=== PATIENT | female | born 1990 | race Hispanic/Latino ===

== ENCOUNTER 2018-07-19 12:19 | Emergency (ER) | payer SELFPAY ==
[2018-07-19 12:54] LABS: Bilirubin Negative (Negative); Blood, Urine Negative (Negative); Clarity CLEAR (Clear); Glucose, Urine (Dipstick) Negative (Negative); Leukocyte Negative (Negative); Nitrite Negative (Negative); Protein, Urine (Dipstick) Negative (Neg-Trace); Urobilinogen 0.2 mg/dL (0.2-1.0); pH, Urine 6.5 (5.0-9.0)
[2018-07-19 13:01] LABS: Pregnancy Test - Urine (BHCG) Negative (Negative); Pregu Control Background? CLEAR/WHITE (CLR/WHITE); Pregu Control Bar Appear? YES (CONTROL BAR); Specific Gravity 1.003 (1.002-1.036); Specific Gravity, Urine 1.003 (1.002-1.036)
[2018-07-19 13:04] LABS: BHCG - Serum Negative (NEGATIVE); Pregs Control Background? CLEAR/WHITE (CLR/WHITE); Pregs Control Bar Appear? YES (CONTROL BAR)
== END 2018-07-19 13:58 | disposition home or self-care (01) ==
LOC: ERS 12:19
DX: R10.2 Pelvic and perineal pain (principal); R11.2 Nausea with vomiting, unspecified; F41.9 Anxiety disorder, unspecified; F32.9 Major depressive disorder, single episode, unspecified; F17.210 Nicotine dependence, cigarettes, uncomplicated; Z79.899 Other long term (current) drug therapy
CPT/HCPCS: 81003; 81025; 84702; 84703; 99284

== ENCOUNTER 2018-12-23 15:43 | Emergency (ER) | payer BC, SELFPAY ==
[2018-12-23] MEDS ORDERED: Metoclopramide HCl 10 MG/2 ML VIAL ONE (16:12)
[2018-12-23] MEDS ORDERED: Ketorolac Tromethamine 30 MG/ML VIAL ONE (16:12)
[2018-12-23] MEDS ORDERED: Dexamethasone 4 mg/ml Vial ONE (16:12)
[2018-12-23 16:26] LABS: Anion Gap 12 mmol/L (10-20); BUN (Urea Nitrogen) 10 mg/dL (7.0-18.7); Calc. Creatinine Clearance 0 mL/min (70-130); Calcium 9.2 mg/dL (7.8-10.44); Carbon Dioxide 29 mmol/L (22-29); Chloride 103 mmol/L (98-107); Estimated GFR-MDRD 76; Glucose 102 mg/dL (70-105); Sodium 140 mmol/L (136-145)
[2018-12-23] MEDS ORDERED: Proparacaine 0.5% Opth 15 ML BOT ONE (17:25)
== END 2018-12-23 17:45 | disposition home or self-care (01) ==
LOC: ERS 15:43
DX: H40.051 Ocular hypertension, right eye (principal); F41.9 Anxiety disorder, unspecified; F32.9 Major depressive disorder, single episode, unspecified; F17.210 Nicotine dependence, cigarettes, uncomplicated; Z87.442 Personal history of urinary calculi; Z79.899 Other long term (current) drug therapy
CPT/HCPCS: 80048; 96365; 96375; J1100; J1885; J2765

== ENCOUNTER 2019-01-11 20:16 | Observation (INO) | payer BC ==
[2019-01-11 21:50] LABS: #Basophils 0.1 thou/uL (0.0-0.2); #Eosinphils 0.5 thou/uL (0.0-0.7); #Lymphocytes 2.7 thou/uL (1.20-3.40); #Monocytes 0.7 thou/uL (0.11-0.59); #Neutrophils 9.1 thou/uL (1.40-6.50); %Basophils 0.5 % (0.0-1.0); %Eosinophils 3.5 % (0.0-10.0); %Lymphocytes 20.8 % (21.0-51.0); %Monocytes 5.7 % (0.0-10.0); %Neutrophils 69.5 % (42.0-75.0); Hemoglobin 11.4 g/dL (12.0-16.0); Mean Corpuscular Hemoglobin 26.8 pg (27.0-31.0); Mean Corpuscular Volume 83.9 fL (78.0-98.0); Mean Platelet Volume 8.1 fL (7.4-10.4); Platelet Count 283 thou/uL (130-400); RBC Distribution Width 14.5 % (11.5-14.5); Red Blood Cell (RBC) Count 4.25 mill/uL (4.20-5.40); White Blood Cell (WBC) Count 13.1 thou/uL (4.8-10.8)
[2019-01-11 22:01] LABS: Bilirubin Negative (Negative); Blood, Urine Large (Negative); Clarity CLOUDY (Clear); Glucose, Urine (Dipstick) Negative (Negative); Leukocyte Small (Negative); Nitrite Negative (Negative); Protein, Urine (Dipstick) 30 mg/dL (Neg-Trace); Specific Gravity, Urine 1.013 (1.002-1.036); Urobilinogen 0.2 mg/dL (0.2-1.0)
[2019-01-11 22:06] LABS: Bacteria/HPF None Seen HPF (None Seen); Hyaline Casts/LPF 0-3 HYALINE CAST LPF (0-3 Hyaline); Pathc Cast-AUWi Flag 0.86 (0-2.49); Squamous Epithelial 0-3 HPF (0-3)
[2019-01-11 22:08] LABS: BHCG - Serum Negative (NEGATIVE); Pregs Control Background? CLEAR/WHITE (CLR/WHITE); Pregs Control Bar Appear? YES (CONTROL BAR)
[2019-01-11 22:09] LABS: Yeast-AUWi Flag 38.2 (0-25.0)
[2019-01-11 22:16] LABS: ALT (SGPT) 15 U/L (8-55); AST (SGOT) 16 U/L (5-34); Albumin 3.7 g/dL (3.5-5.0); Alkaline Phosphatase 64 U/L (40-150); Anion Gap 11 mmol/L (10-20); BUN (Urea Nitrogen) 13 mg/dL (7.0-18.7); Bilirubin, Total Less than 0.2 mg/dL (0.2-1.2); Calc. Creatinine Clearance 0 mL/min (70-130); Calcium 8.4 mg/dL (7.8-10.44); Carbon Dioxide 25 mmol/L (22-29); Chloride 106 mmol/L (98-107); Estimated GFR-MDRD Greater than 90; Glucose 92 mg/dL (70-105); Potassium 3.8 mmol/L (3.5-5.1); Protein, Total 6.7 g/dL (6.0-8.3); Sodium 138 mmol/L (136-145)
[2019-01-11 22:18] LABS: RBC/HPF GREATER THAN 50-TNTC HPF (0-3)
[2019-01-11] MEDS ORDERED: Meclizine HCl 25 MG TAB ONE (23:11)
--- NOTE | 2019-01-11 23:21 | CT ---
CT Brain WO Con: 01/11/2019 11:09 PM CLINICAL HISTORY: Syncope. COMPARISON: None. FINDINGS: Hemorrhage: None. Ventricular system: Normal in size and morphology for the patient's age. Cerebral parenchyma: Normal Midline shift: None. Mass: No mass effect. Calvarium: Normal. Visualized Paranasal sinuses: Clear. IMPRESSION: No acute intracranial abnormalities.
[2019-01-12] MEDS ORDERED: Lorazepam 1 MG TAB ONE (00:21)
[2019-01-12] MEDS ORDERED: diphenhydrAMINE 25 MG CAP ONE (00:24)
[2019-01-12] MEDS ORDERED: Citalopram 10 MG TAB PO SCH ×2 (00:30→22:00)
[2019-01-12 02:22] LABS: Troponin I Less than 0.010 ng/mL (< 0.028)
[2019-01-12 04:02] LABS: Troponin I Less than 0.010 ng/mL (< 0.028)
[2019-01-12] MEDS ORDERED: Acetaminophen 325 MG TAB PO PRN (11:57)
[2019-01-12 16:31] VITALS: BMI 38.0
--- NOTE | 2019-01-12 16:32 | HP ---
PRIMARY CARE PHYSICIAN: Margo Martino MD CHIEF COMPLAINT: "I passed out." HISTORY OF PRESENT ILLNESS: Ms. Ferraro is a pleasant 28-year-old female, who has a history of mitral valve prolapse. She says that yesterday she was in the bathroom and had just gone to the bathroom to urinate and remembers feeling a bit dizzy. She also says that she is on her cycle and was bleeding very heavily. The next thing she knows and said she was on the ground and her was trying to help her out. Her is at the bedside and says that he was in the other room and heard a loud noise like something hit the door and he says that she was a bit disoriented and was trying to wake her up and she says that she was confused when she got up and even after she was brought to the emergency room. She remained confused for some time. No mention of any seizure-like motions or any shaking or jerking. She also says that about 2 weeks ago, she had a severe migraine where she had a bad headache and lost vision in her right eye. The vision lasted for about 4 days and then has since improved and she is back to normal. She does have history of migraines with vision loss in the past. When asked if anything like this has happened before, she said about 7 years ago she passed out, but she equates that to seeing her daughter fall and hit her head and had a lot of bleeding. She says that her mother and her sister have something similar happened where they have very heavy cycles and then tend to have passing-out episodes during their cycles and she says both her sister and her mother have had to have hysterectomies and after they had the hysterectomy, it has gotten better or has actually stopped. REVIEW OF SYSTEMS: All systems were reviewed and are negative except for that mentioned in the history of present illness. PAST MEDICAL HISTORY: Significant for mitral valve prolapse, anxiety, depression, kidney stones, and history of previous migraines. PAST SURGICAL HISTORY: She has had a cholecystectomy, x2 as well as bilateral tubal ligation. ALLERGIES: TO PENICILLIN, SULFA, AND MACROBID. FAMILY HISTORY: Significant for coronary artery disease in her father and daughter and father also had congestive heart failure. Mother and sister have had syncopal episodes related to menstrual cycles. SOCIAL HISTORY: She smokes about 5 cigarettes a day. Denies any alcohol use and she is . MEDICATIONS: Include; 1. Citalopram. 2. Lorazepam. 3. Reglan. 4. Benadryl. 5. Zantac. 6. BuSpar p.r.n. PHYSICAL EXAMINATION: GENERAL: She is alert and oriented. She appears to be in no acute distress. VITAL SIGNS: Blood pressure was 99/56, currently it is about 108/59; heart rate 64; respiratory rate of 12; temperature, she is afebrile. HEENT: Her pupils are equal, round, and reactive to light. Extraocular muscles are intact. Her sclerae are anicteric. Throat; there is no erythema. No exudates. NECK: No adenopathy. No bruits. LUNGS: Clear to auscultation. There are no wheezing, rales, or rhonchi. CARDIOVASCULAR: She has a normal S1 and S2. There is no S3 or S4. No murmurs, clicks, or rubs. ABDOMEN: Obese. It is soft, nontender, and nondistended. Positive for bowel sounds. There is no rebound or guarding. EXTREMITIES: There is no clubbing or cyanosis. No edema. No calf tenderness. No joint effusions. NEUROLOGIC: Cranial nerves II through XII are grossly intact. Her muscle strength is 5/5 in both upper and lower extremities. SKIN AND INTEGUMENT: There are no skin changes. No rash. LABORATORY RESULTS: White blood cell count is 13.1, hemoglobin 11.4, hematocrit is 35.7, and platelet count is 283. Sodium 138, potassium 3.8, chloride is 106, CO2 is 25, BUN of 13, creatinine 0.74, and glucose is 92. Troponin is less than 0.010. Urine test is negative. She had an EKG that was sinus rhythm and had some shortened OK interval and CT scan of the brain was negative. ASSESSMENT AND PLAN: This is a pleasant 28-year-old female, who presents after a syncopal episode. This possibly could be related to her menstrual cycle as in her other family members. However, she has a slightly different or abnormal EKG and for this reason, we will go ahead and keep her in observation until she can be seen by the formal waiter/waitress and once cleared by Cardiology, she can be discharged home with close outpatient followup. She possibly may need an outpatient neurology evaluation as well. Job ID: [id number]
[2019-01-12] MEDS ORDERED: Lorazepam 1 MG TAB PO SCH (21:00)
--- NOTE | 2019-01-12 21:37 | CON ---
DATE OF CONSULTATION: 01/12/2019 REASON FOR CONSULTATION: Syncopal episode. HISTORY OF PRESENT ILLNESS: Ms. Ferraro is a very pleasant 28-year-old woman who had a syncopal episode yesterday. The patient was in the kitchen cooking. She went to the bathroom to urinate, she did not feel quite right and felt lightheaded. She urinated then got up from the toilet, but did not feel well and sat on the floor. She felt unwell, felt lightheaded. She got up to try to walk and lost consciousness. The patient states she has had "fainting" episodes on multiple occasions in her early 20s, but none recently. The patient has in the middle of her periods she said she has relatively heavy periods. PAST MEDICAL HISTORY: She has a previous syncopal episode. FAMILY HISTORY: She has four children. REVIEW OF SYSTEMS: CONSTITUTIONAL: No significant weight gain or loss. She is overweight. VISION: No changes. HEARING: No changes. PULMONARY: No cough or wheezing. GASTROINTESTINAL: No nausea, vomiting, diarrhea. SKIN: No rashes. NEUROLOGIC: No unilateral weakness or numbness. PSYCHIATRIC: No unusual depression or anxiety. HEMATOLOGIC: No unusual bruising. GENITOURINARY: No burning with urination. The patient does have intermittent palpitations lasting for a few seconds at a time like "butterflies" for a few seconds. She did not have these symptoms with this episode. PHYSICAL EXAMINATION: GENERAL: On examination, this is a pleasant 28-year-old woman. She is very overweight with BMI of 38, 5 feet 8 inches tall, 250 pounds. HEENT: Eyes, sclerae are nonicteric. Mouth, mucous membranes are moist. NECK: Supple, no lymphadenopathy. LUNGS: Clear, no wheezing, rales, or rhonchi. CARDIAC: Normal S1, normal S2. There is no murmur, rub, or gallop. ABDOMEN: Obese, nontender. No hepatosplenomegaly. EXTREMITIES: Warm and dry. No clubbing, cyanosis, or edema. Good peripheral pulses. SKIN: Warm and dry. LABORATORY DATA: Cardiac enzymes are all negative. Hemoglobin is 11.4, hematocrit 35.7. EKG, normal sinus rhythm, looks like a normal EKG. The computer read it is a sharp MS, but the MS interval is 120 seconds by my measurement, which is within normal limits. ASSESSMENT: Syncopal episode, probably orthostatic hypotension, vasovagal. PLAN: 1. Echocardiogram needs to be done as an outpatient. 2. Outpatient monitoring to be done for the palpitations, but these were unassociated with her syncopal episode. 3. I explained to the patient she should sit down or lay down quickly if she feels lightheaded. The patient wishes to be released home. She has one of her children on hospice unfortunately. Also we would recommend iron tests, she may be iron deficient, may need to be on iron. Job ID: [id number]
[2019-01-13 08:06] LABS: #Basophils 0.1 thou/uL (0.0-0.2); #Eosinphils 0.4 thou/uL (0.0-0.7); #Lymphocytes 2.4 thou/uL (1.20-3.40); #Monocytes 0.5 thou/uL (0.11-0.59); %Basophils 0.8 % (0.0-1.0); %Eosinophils 5.6 % (0.0-10.0); %Lymphocytes 38.7 % (21.0-51.0); %Monocytes 7.2 % (0.0-10.0); %Neutrophils 47.8 % (42.0-75.0); Hemoglobin 10.9 g/dL (12.0-16.0); Mean Corpuscular HGB CONC 31.7 g/dL (32.0-36.0); Mean Corpuscular Hemoglobin 26.5 pg (27.0-31.0); Mean Corpuscular Volume 83.7 fL (78.0-98.0); Mean Platelet Volume 8.2 fL (7.4-10.4); Platelet Count 218 thou/uL (130-400); RBC Distribution Width 14.5 % (11.5-14.5); Red Blood Cell (RBC) Count 4.09 mill/uL (4.20-5.40); White Blood Cell (WBC) Count 6.3 thou/uL (4.8-10.8)
[2019-01-13 08:18] LABS: BUN (Urea Nitrogen) 9 mg/dL (7.0-18.7); Calc. Creatinine Clearance 189 mL/min (70-130); Calcium 8.4 mg/dL (7.8-10.44); Carbon Dioxide 25 mmol/L (22-29); Chloride 109 mmol/L (98-107); Estimated GFR-MDRD 88; Glucose 89 mg/dL (70-105); Potassium 4.2 mmol/L (3.5-5.1); Sodium 140 mmol/L (136-145)
[2019-01-13] MEDS ORDERED: Citalopram 10 MG TAB PO SCH ×2 (09:00→21:00)
[2019-01-13 09:55] LABS: Anion Gap 10 mmol/L (10-20)
--- NOTE | 2019-01-13 11:26 | PDOC.PN ---
- Subjective Encounter Start Date: 01/13/19 Encounter Start Time: 11:24 Ms. Ferraro was seen today in follow-up she does not have any complaints. - Objective Resuscitation Status - Order Detail: 01/12/19 11:48 Resuscitation Status Routine Resuscitation Status: FULL: Full Resuscitation MAR Reviewed: Yes Vital Signs & Weight: Vital Signs (12 hours) Temp Pulse Resp BP BP Pulse Ox 01/13/19 07:34 98 F 63 16 106/51 L 95 01/13/19 05:10 98.3 F 61 16 109/60 96 Weight Weight 246 lb 14.4 oz I&O: 01/12/19 01/13/19 01/14/19 06:59 06:59 06:59 Intake Total 520 Balance 520 Result Diagrams: 01/13/19 07:51 01/13/19 07:51 Phys Exam - Physical Examination HEENT: PERRLA Respiratory: no wheezing, no rales, no rhonchi, clear to auscultation bilateral Cardiovascular: RRR, no significant murmur, no rub Gastrointestinal: soft, non-tender, no distention, positive bowel sounds Musculoskeletal: no edema Dx/Plan (1) Syncope Code(s): R55 - SYNCOPE AND COLLAPSE Status: Acute (2) Menorrhagia Code(s): N92.0 - EXCESSIVE AND FREQUENT MENSTRUATION WITH REGULAR CYCLE Status : Acute (3) Abnormal EKG Code(s): R94.31 - ABNORMAL ELECTROCARDIOGRAM [ECG] [EKG] Status: Acute - Plan * Syncope- ? etiology * She is stable for discharge home, and Dr. Durant recommends Outpatient Echo, and Holter Monitor.
[2019-01-13 12:06] VITALS: BP 118/72; TEMP 97.9
--- NOTE | 2019-01-14 05:09 | DIS ---
DATE OF ADMISSION: 01/12/2019 DATE OF DISCHARGE: 01/13/2019 DISCHARGE DISPOSITION: Home. PRIMARY DISCHARGE DIAGNOSES: 1. Syncope of unknown etiology. 2. Heavy menses. 3. Depression. 4. Anxiety. DISCHARGE MEDICATIONS: 1. Zantac 150 mg daily. 2. Lorazepam 1 mg at bedtime. 3. Benadryl 25 mg q.6. 4. Citalopram 10 mg daily. CODE STATUS: Full code. ALLERGIES: FENTANYL, FLUTICASONE, LATEX, NATURAL RUBBER, MORPHINE, COMPAZINE, PENICILLIN, AND NITROFURANTOIN. HOSPITAL COURSE: Ms. Ferraro is a pleasant 28-year-old female who was brought to the hospital by family after she suffered a syncopal episode. The full details of which are outlined in the history and physical. There were some changes of a short KS interval on her EKG and for this reason, she was placed in observation until she could be evaluated by Cardiology. It is recommended that she have an outpatient echo as well as make some changes related to orthostasis such as staying hydrated and being sure to stand and not to jump up quickly in changing positions. Also, Dr. Durant is recommending a Holter or event monitor as well. The patient herself notes that her mother and sisters had similar episodes where they would have syncopal episodes following heavy menses and this may in fact necktie turner to be the cause of her syncope. Job ID: [id number]
--- NOTE | 2019-01-15 15:36 | EKG ---
Test Reason : Blood Pressure : / mmHG Vent. Rate : 065 BPM Atrial Rate : 065 BPM P-R Int : 110 ms QRS Dur : 088 ms QT Int : 408 ms P-R-T Axes : 025 054 019 degrees QTc Int : 424 ms Poor data quality, interpretation may be adversely affected Sinus rhythm with sinus arrhythmia with short [place] Otherwise normal ECG Confirmed by DAYSI BURNETT ([id number]), editorial clerk FOZIA JACKSON ([id number]) on 01/15/2019 3:35:37 PM Referred By: Confirmed By:DAYSI BURNETT
== END 2019-01-13 12:19 | disposition home or self-care (01) ==
LOC: ERS 20:16 → ERHOLD 01-12 11:19 → 2SW 01-12 16:28
PROVIDERS: ADMIT Family Medicine; ATTEND Family Medicine
DX: R55 Syncope and collapse (principal); N92.0 Excessive and frequent menstruation with regular cycle; F32.9 Major depressive disorder, single episode, unspecified; F41.9 Anxiety disorder, unspecified; I34.1 Nonrheumatic mitral (valve) prolapse; G43.909 Migraine, unspecified, not intractable, without status migrainosus; F17.210 Nicotine dependence, cigarettes, uncomplicated; R94.31 Abnormal electrocardiogram [ECG] [EKG]; Z79.899 Other long term (current) drug therapy; Z88.0 Allergy status to penicillin; Z88.2 Allergy status to sulfonamides; Z88.5 Allergy status to narcotic agent; Z88.8 Allergy status to other drugs, medicaments and biological substances; Z88.1 Allergy status to other antibiotic agents; Z91.040 Latex allergy status
CPT/HCPCS: 36415; 70450; 80048; 80053; 81003; 81015; 82728; 83540; 84484; 84703; 85025; 93005; 96360; 96361; G0378; J8499; Q0163

== ENCOUNTER 2019-01-27 20:10 | Observation (INO) | payer BC ==
[~2019-01-27 20:10] MED LIST: ISOVUE-370 76%-LOCM 1 ML ONE
--- NOTE | 2019-01-27 20:40 | RAD ---
Portable frontal chest radiograph: 01/27/2019 COMPARISON: 04/21/2016 HISTORY: Right-sided abdominal pain FINDINGS: Lungs are clear. Heart and mediastinal contours appear within normal limits. IMPRESSION: No acute findings.
[2019-01-27 20:47] LABS: #Eosinphils 0.1 thou/uL (0.0-0.7); #Lymphocytes 1.4 thou/uL (1.20-3.40); #Monocytes 0.7 thou/uL (0.11-0.59); #Neutrophils 6.9 thou/uL (1.40-6.50); %Basophils 0.5 % (0.0-1.0); %Eosinophils 0.8 % (0.0-10.0); %Lymphocytes 14.8 % (21.0-51.0); %Monocytes 7.8 % (0.0-10.0); %Neutrophils 76.1 % (42.0-75.0); Hemoglobin 12.2 g/dL (12.0-16.0); Mean Corpuscular HGB CONC 32.4 g/dL (32.0-36.0); Mean Corpuscular Hemoglobin 26.5 pg (27.0-31.0); Mean Corpuscular Volume 81.6 fL (78.0-98.0); Mean Platelet Volume 8.2 fL (7.4-10.4); Platelet Count 220 thou/uL (130-400); RBC Distribution Width 14.3 % (11.5-14.5); White Blood Cell (WBC) Count 9.1 thou/uL (4.8-10.8)
[2019-01-27 20:59] LABS: Bilirubin Negative (Negative); Blood, Urine Small (Negative); Clarity CLEAR (Clear); Glucose, Urine (Dipstick) Negative (Negative); Leukocyte Negative (Negative); Nitrite Negative (Negative); Pregnancy Test - Urine (BHCG) Negative (Negative); Pregu Control Background? CLEAR/WHITE (CLR/WHITE); Pregu Control Bar Appear? YES (CONTROL BAR); Protein, Urine (Dipstick) Negative (Neg-Trace); Specific Gravity 1.008 (1.002-1.036); Specific Gravity, Urine 1.008 (1.002-1.036); Urobilinogen 0.2 mg/dL (0.2-1.0); pH, Urine 7.5 (5.0-9.0)
[2019-01-27 21:01] LABS: Bacteria/HPF Rare-Few HPF (None Seen); Hyaline Casts/LPF 0-3 HYALINE CAST LPF (0-3 Hyaline); Pathc Cast-AUWi Flag 0.13 (0-2.49); RBC/HPF 0-3 HPF (0-3); Squamous Epithelial 0-3 HPF (0-3)
[2019-01-27] MEDS ORDERED: Acetaminophen 500 MG TAB ONE (21:07)
[2019-01-27] MEDS ORDERED: Morphine 4 MG/ML VIAL ONE (21:07)
[2019-01-27 21:08] LABS: BHCG - Serum Negative (NEGATIVE); Pregs Control Background? CLEAR/WHITE (CLR/WHITE); Pregs Control Bar Appear? YES (CONTROL BAR)
[2019-01-27 21:10] LABS: ALT (SGPT) 26 U/L (8-55); AST (SGOT) 25 U/L (5-34); Albumin 4.2 g/dL (3.5-5.0); Alkaline Phosphatase 75 U/L (40-150); Anion Gap 14 mmol/L (10-20); BUN (Urea Nitrogen) 9 mg/dL (7.0-18.7); Bilirubin, Total 0.3 mg/dL (0.2-1.2); Calc. Creatinine Clearance 0 mL/min (70-130); Calcium 9.4 mg/dL (7.8-10.44); Carbon Dioxide 27 mmol/L (22-29); Chloride 99 mmol/L (98-107); Estimated GFR-MDRD 80; Globulin 3.4 g/dL (2.4-3.5); Glucose 87 mg/dL (70-105); Potassium 3.6 mmol/L (3.5-5.1); Protein, Total 7.6 g/dL (6.0-8.3); Sodium 136 mmol/L (136-145)
[2019-01-27] MEDS ORDERED: Ondansetron PF 4 MG/2 ML Vial ONE (21:15)
[2019-01-27 21:16] LABS: CK (CPK) 115 U/L (29-168); Lipase 26 U/L (8-78)
--- NOTE | 2019-01-27 22:10 | CT ---
CT of abdomen and pelvis: 01/27/2019 COMPARISON: 03/15/2011 HISTORY: Worsening abdominal pain for 2 days TECHNIQUE: Axial CT imaging at 5 mm intervals from lung bases through pubic symphysis with IV contras t. Coronal reformatted imaging obtained. FINDINGS: Imaged lung bases are unremarkable. Cholecystectomy clips are present. No free intraperiton eal air. Nonspecific splenomegaly noted, the spleen measuring 14.6 cm AP dimension and 15 cm craniocaudal dime nsion. The spleen is larger than on the prior examination at which time it measured 13 cm AP dimension and 1 2.4 cm craniocaudal dimension. The adrenal glands, the kidneys, and the pancreas appear grossly unremarkable. Nonspecific small volume free fluid is noted within the pelvic cul-de-sac. Limited assessment of the bowel without oral contrast media demonstrates no evidence for obstruction. The appendix cannot be discretely visualized but no inflammatory changes seen to suggest the presence of acute appendicitis. The vascular structures appear unremarkable and no lymphadenopathy is seen. No acute osseous abnormal ity. The patient appears to have a mobile cecum, located in the right upper quadrant on today's examinatio n. IMPRESSION: Nonspecific splenomegaly.
[2019-01-27] MEDS ORDERED: Ketorolac Tromethamine 30 MG/ML VIAL ONE (23:22)
[2019-01-27] MEDS ORDERED: Ondansetron PF 4 MG/2 ML Vial IVP PRN (23:58)
[2019-01-27] MEDS ORDERED: Senokot S 8.6-50 MG TAB PO PRN (23:58)
[2019-01-27] MEDS ORDERED: Ondansetron ODT 4 MG TAB PO PRN (23:58)
[2019-01-28] MEDS: Sodium Chloride 0.9% 1,000 ML IV SCH ×3 (01:23→16:58)
[2019-01-28 02:57] VITALS: BMI 36.5
--- NOTE | 2019-01-28 03:18 | HP ---
PRIMARY CARE PHYSICIAN: Margo Martino MD CHIEF COMPLAINT: Abdominal pain. HISTORY OF PRESENT ILLNESS: Ms. Ferraro is a 28-year-old female reported to the emergency room today after worsening abdominal pain, which started 2 days ago, associated with nausea, vomiting. Denies any diarrhea. Reports syncope when standing x1. The patient was recently evaluated for similar, was evaluated by Cardiology. Denies any chest pain, dyspnea, diarrhea, dysuria or frequency. Reports that she initially went to her primary care doctor today, had a bunch of lab work, was told that she had a UTI and was called in a prescription for antibiotics, but rather than picking up reported that she came to the emergency room, because she felt worse. Reports chills. Denies fever. Denies flank pain. Does report some suprapubic tenderness. Denies any vaginal discharge, any vaginal bleeding. While she was in the emergency room, she had a CT of her abdomen and pelvis, which showed no acute findings. Lab work was unremarkable. Lactic acid 1.1. Urinalysis shows a small amount of blood, white blood cells of 4-6, no bacteria that was sent off for culture. test was negative. White blood cell count is 9.1. Chest x-ray showed no acute findings. The patient's initial vital signs blood pressure 130/64, pulse was 129, respirations 24, temperature 99.4, pO2 sats 97% on room air. She was given Toradol, Zofran, Levaquin, morphine, Tylenol, 30 mL per kg of sodium chloride IV. Vital signs by the time she was discharged, improved. The patient was admitted to the Hospitalist Service for abdominal pain, SIRS. PAST MEDICAL HISTORY: Significant for mitral valve prolapse, anxiety, depression, kidney stones, history of migraines. SURGICAL HISTORY: section x2, cholecystectomy, tubal ligation. PSYCHIATRIC HISTORY: Anxiety and depression. SOCIAL HISTORY: Uses tobacco, smokes daily, has smoked for 5 years, 3-4 cigarettes per day. Drinks socially. Denies any drug use. FAMILY HISTORY: Heart disease. REVIEW OF SYSTEMS: CONSTITUTIONAL: Reports chills. Reports subjective fever. Reports abdominal pain, right-sided, but also suprapubic. Denies diarrhea. Does report nausea vomiting. Denies any dysuria or hematuria. NEUROLOGIC: Reports dizziness, syncope. Other systems reviewed and negative unless mentioned in the HPI. PHYSICAL EXAMINATION: VITAL SIGNS: Blood pressure 108/54, pulse is 73, respirations are 20, pain is down to a 5, five pO2 sats are 100% on room air, temperature is 98.8. GENERAL: The patient appears nontoxic, is alert and oriented to person, place, and time, in no acute distress. HEENT: Head is atraumatic and normocephalic. Eyes, pupils are equally round and reactive to light. Eyelids are normal to inspection. ENT: Mouth exam is normal. Mucous membranes are moist. NECK: Normal range of motion. Trachea is midline. RESPIRATORY: Chest movement is symmetrical. Chest expansion is equal. CARDIOVASCULAR: Heart rate is regular rate and rhythm. Heart sounds are normal. ABDOMEN: Mild tenderness to the right upper and lower quadrant and suprapubic region. Bowel sounds are normal. BACK: Normal range of motion. No CVA tenderness. EXTREMITIES: Upper extremity, normal inspection, normal range of motion. Radial pulses equal bilaterally lower extremity. Lower extremity, normal inspection, normal range of motion. Pedal pulses equal bilaterally. NEUROLOGIC: The patient is oriented to person, place, and time. Speech is normal. No focal motor or sensory deficits. SKIN: Warm, dry and normal in color. PERTINENT LABORATORY DATA: TSH is 1.13. Lipase is 26. CK is 115. Sodium is 136, potassium is 3.6, chloride is 99, carbon dioxide is 27, gap is 14, BUN is 9, creatinine is 0.84, GFR is 80, glucose is 87. Liver enzymes are unremarkable. Serum is negative. Lactic acid is 1.1. UA is positive for blood and white blood cells, no bacteria. White blood cell count is 9.1, hemoglobin is 12.2, hematocrit is 37.5, and platelet count is 220. IMAGING: EKG initial one in the ER shows sinus tach at 133. Nonspecific T-wave, ST abnormality, axis is normal. ASSESSMENT AND PLAN: 1. Abdominal pain with initial tachycardia, improved with fluids and medication. 2. The patient is no longer tachycardic. Vital signs have normalized. Lab work was unremarkable. CT scan of the abdomen was also unremarkable. The patient was treated with Levaquin for a possible urinary tract infection. We will continue IV hydration. We will repeat lab work in the morning. If feeling better, the patient may be able to go home on continued p.o. antibiotics as deemed appropriate by day staff. 3. History of syncope. The patient was evaluated by Dr. Durant several weeks ago. The patient is to follow up as an outpatient for an echocardiogram and possible monitor. The patient denies follow up yet. 4. Gastrointestinal and deep venous thrombosis prophylaxis will be started. 5. Hospital course will be dependent on clinical findings. Job ID: [id number]
[2019-01-28] MEDS: Acetaminophen 325 MG TAB PO PRN ×3 (04:43→14:36)
[2019-01-28 05:04] LABS: #Lymphocytes 1.2 thou/uL (1.20-3.40); #Monocytes 0.8 thou/uL (0.11-0.59); #Neutrophils 3.6 thou/uL (1.40-6.50); %Basophils 0.2 % (0.0-1.0); %Eosinophils 0.7 % (0.0-10.0); %Lymphocytes 20.5 % (21.0-51.0); %Monocytes 14.3 % (0.0-10.0); %Neutrophils 64.3 % (42.0-75.0); Hemoglobin 10.4 g/dL (12.0-16.0); Mean Corpuscular HGB CONC 31.6 g/dL (32.0-36.0); Mean Corpuscular Hemoglobin 26.3 pg (27.0-31.0); Mean Corpuscular Volume 83.2 fL (78.0-98.0); Mean Platelet Volume 8.5 fL (7.4-10.4); Platelet Count 162 thou/uL (130-400); RBC Distribution Width 14.3 % (11.5-14.5); Red Blood Cell (RBC) Count 3.94 mill/uL (4.20-5.40); White Blood Cell (WBC) Count 5.7 thou/uL (4.8-10.8)
[2019-01-28 05:35] LABS: ALT (SGPT) 25 U/L (8-55); AST (SGOT) 20 U/L (5-34); Albumin 3.3 g/dL (3.5-5.0); Alkaline Phosphatase 60 U/L (40-150); Anion Gap 9 mmol/L (10-20); BUN (Urea Nitrogen) 7 mg/dL (7.0-18.7); Bilirubin, Total Less than 0.2 mg/dL (0.2-1.2); Calc. Creatinine Clearance 189 mL/min (70-130); Calcium 7.8 mg/dL (7.8-10.44); Carbon Dioxide 25 mmol/L (22-29); Chloride 107 mmol/L (98-107); Estimated GFR-MDRD Greater than 90; Globulin 2.7 g/dL (2.4-3.5); Glucose 95 mg/dL (70-105); Potassium 3.1 mmol/L (3.5-5.1); Sodium 138 mmol/L (136-145)
[2019-01-28] MEDS: Ketorolac Tromethamine 30 MG/ML VIAL IVP PRN ×2 (07:59→14:36)
[2019-01-28] MEDS ORDERED: Famotidine 20 MG TAB PO SCH (09:00)
[2019-01-28] MEDS ORDERED: Enoxaparin Sodium 40 MG/0.4 ML SYRINGE SC SCH (09:00)
[2019-01-28 11:16] VITALS: TEMP 98.1
[2019-01-28 12:24] VITALS: BP 88/57
[2019-01-28] MEDS ORDERED: Potassium Chloride 20 MEQ TAB PO SCH ×2 (12:30→14:30)
[2019-01-28 16:41] LABS: Potassium 3.9 mmol/L (3.5-5.1)
--- NOTE | 2019-01-29 01:19 | DIS ---
DATE OF ADMISSION: 01/27/2019 DATE OF DISCHARGE: 01/28/2019 ALLERGIES: FENTANYL, FLONASE, LATEX, MACROBID, PENICILLINS, COMPAZINE, SULFA. CHIEF COMPLAINT: Abdominal pain with nausea and vomiting. FINAL DIAGNOSES: 1. Abdominal pain with nausea and vomiting secondary to a likely viral gastroenteritis, with initial sinus tachycardia on arrival, resolved with IV fluids, orthostatics negative. CT of the abdomen negative. 2. Hypokalemia, status post repletion, now normal. 3. History of syncope, undergoing outpatient workup with Dr. Durant. 4. Iron deficiency anemia, likely secondary to heavy menses. 5. Urinary tract infection. PROCEDURES PERFORMED: None. LABORATORY RESULTS: White blood cell count 5.7, hemoglobin 10.4, hematocrit 32.8, platelet count is 162. Sodium 138, potassium now 3.9, was 3.1, chloride 107, anion gap 9, carbon dioxide 25, creatinine 0.75. AST, ALT, and alkaline phosphatase are all within normal limits. Albumin 4.2. Urinalysis positive for blood and white blood cells. IMAGING RESULTS: Chest x-ray, no acute findings. Lungs are clear. Heart and mediastinal contours are within normal limits. CT of the abdomen and pelvis with contrast, impression was nonspecific splenomegaly, no inflammatory changes were seen to suggest acute appendicitis. Adrenal glands, kidneys, and pancreas were unremarkable. CONSULTATIONS: None. VITAL SIGNS: Blood pressure 97/65, pulse is 64, O2 saturation is 98% on room air, the patient is afebrile at temperature 98.1. HOSPITAL COURSE: Ms. Ferraro is a 28-year-old female with past medical history significant for recent admission on January 12 after suffering a syncopal episode. She was discharged in good condition after that on January 13 with instruction for outpatient cardiology workup with Dr. Durant. The patient presents back to the hospital yesterday with complaints of a 2-day history of worsening abdominal pain along with nausea and vomiting. The patient reports that she was seen at her PCP's office, who thought she may have had a urinary tract infection, and was sent out with prescription for oral antibiotics, but the patient's symptoms continued to progress, and so she presented to the ED instead. Imaging results as outlined above. Initially on arrival, the patient was tachycardic in the 120s, and her initial temperature was 99.4 degrees. She was given IV fluids, Toradol, Zofran, Levaquin, morphine, and Tylenol, and within a very short amount of time, her tachycardia completely resolved. She was admitted for observation. She rested well overnight. She continued to have some crampy abdominal pain, but no more nausea or vomiting. She remained non-tachycardic with heart rate consistently in the 60s to 80s. Her potassium was low this morning, and status post repletion, she feels much improved. She has ambulated with walking program without issue. Orthostatic vital signs were performed, which were negative. She has had no further nausea or vomiting. PHYSICAL EXAMINATION: GENERAL: This is a well-appearing, 28-year-old female, mildly obese, in no acute distress. HEENT: Head is atraumatic and normocephalic. Mucous membranes are moist. NECK: Supple. No lymphadenopathy. No carotid bruits. CV: S1 and S2. Regular rate and rhythm. No appreciable murmurs, rubs, or gallops. LUNGS: Regular respiratory rate and pattern. Clear to auscultation bilaterally. ABDOMEN: Soft. Positive bowel sounds. Nontender throughout. EXTREMITIES: No edema. +2 DP pulses bilaterally. SKIN: Warm and dry. No rashes. NEUROLOGIC: Awake, alert, and oriented x3. Cranial nerves II through XII are intact. Nonfocal. CONDITION AT DISCHARGE: Stable. DISCHARGE MEDICATIONS: 1. [id number] Tylenol p.r.n. 2. Citalopram 10 mg p.o. daily. 3. Ibuprofen 200 mg capsule p.o. q.4 hours p.r.n. 4. Ativan 1 mg tablet p.o. at bedtime. New medications will be, 1. Ciprofloxacin 500 mg tablet, one tablet p.o. for the next 3 days to cover for UTI. 2. Ferrous sulfate supplement 324 mg tablet, one tablet daily. DISCHARGE DISPOSITION: Home. PLAN: I have advised the patient that she needs to follow up with Gynecology regarding her heavy menses and possible treatment options for this. She will also need to follow up with Dr. Durant as recommended at her last hospitalization for outpatient echocardiogram and further workup regarding her syncope. Regarding her presenting symptoms, which I feel are largely secondary to viral gastroenteritis. She will continue to advance her diet as tolerated. She has had no further nausea, vomiting, or diarrhea since her admission here. She will continue supportive care at home. Her presenting symptoms have all resolved. Care of this patient was discussed with Dr. Falcon who agrees with the plan as above. Job ID: [id number]
== END 2019-01-28 17:05 | disposition home or self-care (01) ==
LOC: ERS 20:10 → INTOOBSV 22:32 → ERHOLD 22:32 → SURG B 01-28 02:07
PROVIDERS: ADMIT Hospitalist; ATTEND Hospitalist
DX: R10.9 Unspecified abdominal pain (principal); R11.2 Nausea with vomiting, unspecified; F41.9 Anxiety disorder, unspecified; F32.9 Major depressive disorder, single episode, unspecified; F17.210 Nicotine dependence, cigarettes, uncomplicated; G40.909 Epilepsy, unspecified, not intractable, without status epilepticus; E87.6 Hypokalemia; D50.9 Iron deficiency anemia, unspecified; N39.0 Urinary tract infection, site not specified; R16.1 Splenomegaly, not elsewhere classified; Z79.899 Other long term (current) drug therapy; Z88.0 Allergy status to penicillin; Z88.2 Allergy status to sulfonamides; Z88.5 Allergy status to narcotic agent; Z88.8 Allergy status to other drugs, medicaments and biological substances; Z91.040 Latex allergy status
CPT/HCPCS: 36415; 71045; 74177; 80053; 81001; 81015; 81025; 82550; 83605; 83690; 84443; 84703; 85025; 87040; 87086; 87480; 87491; 87510; 87591; 87660; 87804; 93005; 96361; 96365; 96372; 96374; 96375; 96376; G0378; J1650; J1885; J1956; J2270; J2405; Q9966

== ENCOUNTER 2019-05-01 05:45 | Emergency (ER) | payer BC | END 2019-05-01 07:19 | disposition home or self-care (01) | LOC: ERS 05:45 | DX: T78.40XA Allergy, unspecified, initial encounter (principal); F41.9 Anxiety disorder, unspecified; F32.9 Major depressive disorder, single episode, unspecified; F17.210 Nicotine dependence, cigarettes, uncomplicated; Z79.899 Other long term (current) drug therapy | CPT/HCPCS: 99283 ==

== ENCOUNTER 2019-12-30 13:28 | Emergency (ER) | payer BC, SELFPAY ==
[2019-12-30 14:32] LABS: #Eosinphils 0.3 thou/uL (0.0-0.7); #Lymphocytes 2.6 thou/uL (1.20-3.40); #Monocytes 0.6 thou/uL (0.11-0.59); #Neutrophils 6.6 thou/uL (1.40-6.50); %Basophils 0.4 % (0.0-1.0); %Eosinophils 2.6 % (0.0-10.0); %Lymphocytes 25.3 % (21.0-51.0); %Monocytes 6.2 % (0.0-10.0); %Neutrophils 65.5 % (42.0-75.0); Hemoglobin 13.6 g/dL (12.0-16.0); Mean Corpuscular HGB CONC 31.5 g/dL (32.0-36.0); Mean Corpuscular Volume 82.5 fL (78.0-98.0); Mean Platelet Volume 8.3 fL (7.4-10.4); Platelet Count 281 thou/uL (130-400); RBC Distribution Width 13.8 % (11.5-14.5); Red Blood Cell (RBC) Count 5.22 mill/uL (4.20-5.40); White Blood Cell (WBC) Count 10.1 thou/uL (4.8-10.8)
--- NOTE | 2019-12-30 14:44 | RAD ---
EXAM: CHEST ONE VIEW HISTORY: Syncope. Sinus infection. COMPARISON: 01/27/2019 FINDINGS: The cardiac silhouette and pulmonary vasculature is within normal limits. The lungs are clear. The os seous structures are intact. No interval change from prior study. IMPRESSION: No acute cardiopulmonary process.
[2019-12-30 14:53] LABS: ALT (SGPT) 16 U/L (8-55); AST (SGOT) 15 U/L (5-34); Alkaline Phosphatase 67 U/L (40-110); Anion Gap 15 mmol/L (10-20); BUN (Urea Nitrogen) 9 mg/dL (7.0-18.7); Bilirubin, Total 0.2 mg/dL (0.2-1.2); Calc. Creatinine Clearance 0 mL/min (70-130); Calcium 8.7 mg/dL (7.8-10.44); Carbon Dioxide 24 mmol/L (22-29); Chloride 105 mmol/L (98-107); Estimated GFR-MDRD 80; Globulin 3.2 g/dL (2.4-3.5); Glucose 106 mg/dL (70-105); Potassium 3.7 mmol/L (3.5-5.1); Protein, Total 7.2 g/dL (6.0-8.3); Sodium 140 mmol/L (136-145)
[2019-12-30] MEDS ORDERED: Famotidine 20 MG TAB ONE (14:57)
[2019-12-30] MEDS ORDERED: diphenhydrAMINE 12.5 MG/5 ML UDCUP ONE (14:58)
[2019-12-30] MEDS ORDERED: Ondansetron PF 4 MG/2 ML Vial ONE (14:58)
[2019-12-30] MEDS ORDERED: diphenhydrAMINE 50 MG/ML VIAL ONE (14:59)
[2019-12-30 15:27] LABS: BHCG - Serum Negative (NEGATIVE); Pregs Control Background? CLEAR/WHITE (CLR/WHITE); Pregs Control Bar Appear? YES (CONTROL BAR)
--- NOTE | 2020-01-05 14:18 | EKG ---
Test Reason : SYNCOPAL EPISODE Blood Pressure : / mmHG Vent. Rate : 075 BPM Atrial Rate : 075 BPM P-R Int : 136 ms QRS Dur : 088 ms QT Int : 382 ms P-R-T Axes : 042 058 022 degrees QTc Int : 426 ms Normal sinus rhythm with sinus arrhythmia Normal ECG Reconfirmed by RONALD SALAS ([id number]), order editor GAEL GONZALEZ ([id number]) on 01/05/2020 2:18:19 PM Referred By: Confirmed By:RONALD Ragland
== END 2019-12-30 16:55 | disposition home or self-care (01) ==
LOC: ERS 13:28
DX: R55 Syncope and collapse (principal); F41.9 Anxiety disorder, unspecified; F32.9 Major depressive disorder, single episode, unspecified; F17.210 Nicotine dependence, cigarettes, uncomplicated; Z79.899 Other long term (current) drug therapy
CPT/HCPCS: 36415; 71045; 80053; 84703; 85025; 93005; 96361; 96374; J1200; J2405; Q0163

== ENCOUNTER 2024-10-19 10:08 | Emergency (ER) | payer OTHER ==
[2024-10-19] MEDS ORDERED: Acetaminophen 500 MG TAB ONE (11:10)
[2024-10-19] MEDS ORDERED: Magnesium 2 GM/50 ML BAG (IN WATER) ONE (11:11)
[2024-10-19] MEDS ORDERED: Metoclopramide HCl 10 MG (2 mL) VIAL ONE (12:46)
[2024-10-19] MEDS ORDERED: diphenhydrAMINE 50 MG/ML VIAL ONE (12:46)
[2024-10-19] MEDS ORDERED: Dexamethasone 10 MG/ML VIAL ONE (12:46)
[2024-10-19] MEDS ORDERED: Ketorolac Tromethamine 30 MG (1 mL) VIAL ONE (12:48)
== END 2024-10-19 13:46 | disposition home or self-care (01) ==
LOC: ERS 10:08
DX: G43.909 Migraine, unspecified, not intractable, without status migrainosus (principal); F17.210 Nicotine dependence, cigarettes, uncomplicated
CPT/HCPCS: 70450; 96365; 96367; 96375; J1100; J1200; J1885; J2765; J3475